=== PATIENT | female | born 1940 | race Caucasian/White ===

== ENCOUNTER 2022-09-19 15:45 | Emergency (ER) | payer OTHER, MEDICARE ==
[~2022-09-19 15:45] MED LIST: Iopamidol 370 76% 100 ML VIAL ONE
[2022-09-19] MEDS ORDERED: Sodium Chloride 0.9% 1,000 ML ONE (16:19)
[2022-09-19] MEDS ORDERED: Lidocaine 1% w/Epinephrine 1:100K 30 ML VIAL ONE (16:19)
[2022-09-19 16:34] LABS: #Basophils 0.1 thou/uL (0.0-0.2); #Lymphocytes 2.7 thou/uL (1.20-3.40); #Monocytes 0.5 thou/uL (0.11-0.59); #Neutrophils 3.6 thou/uL (1.40-6.50); %Basophils 1.4 % (0.0-1.0); %Eosinophils 0.4 % (0.0-10.0); %Lymphocytes 38.8 % (21.0-51.0); %Monocytes 7.3 % (0.0-10.0); Hemoglobin 13.7 g/dL (12.0-16.0); Mean Corpuscular HGB CONC 31.4 g/dL (32.0-36.0); Mean Corpuscular Hemoglobin 27.7 pg (27.0-31.0); Mean Corpuscular Volume 88.2 fl (78.0-98.0); Platelet Count 253 10x3/uL (130-400); RBC Distribution Width 13.3 % (11.5-14.5); Red Blood Cell (RBC) Count 4.94 mill/uL (4.20-5.40)
[2022-09-19 16:48] LABS: ALT (SGPT) 58 U/L (8-55); AST (SGOT) 89 U/L (5-34); Albumin 4.1 g/dL (3.4-4.8); Alkaline Phosphatase 72 U/L (40-110); Anion Gap 17 mmol/L (10-20); BUN (Urea Nitrogen) 17 mg/dL (9.8-20.1); Bilirubin, Total 0.4 mg/dL (0.2-1.2); Calc. Creatinine Clearance 0 mL/min (70-130); Calcium 9.1 mg/dL (7.8-10.44); Carbon Dioxide 24 mmol/L (23-31); Chloride 104 mmol/L (98-107); Estimated GFR 48; Globulin 3.1 g/dL (2.4-3.5); Glucose 104 mg/dL (83-110); Potassium 3.9 mmol/L (3.5-5.1); Protein, Total 7.2 g/dL (5.8-8.1); Sodium 141 mmol/L (136-145)
[2022-09-19] MEDS ORDERED: Acetaminophen 325 MG TAB ONE ×2 (17:16→17:17)
[2022-09-19] MEDS ORDERED: Bacitracin 1 PK ONE (17:20)
[2022-09-19] MEDS ORDERED: CEFAZOLIN 2 GM VIAL ONE (18:21)
[2022-09-19] MEDS ORDERED: Sodium Chloride 0.9% 100 ML ONE (18:21)
[2022-09-19] MEDS ORDERED: Sodium Chloride 0.9% 200 ML ONE (18:22)
[2022-09-19] MEDS ORDERED: CEFAZOLIN 1 GM VIAL ONE (18:22)
== END 2022-09-19 22:23 | disposition short-term general hospital (02) ==
LOC: MADERS 15:45
DX: S02.19XA Other fracture of base of skull, initial encounter for closed fracture (principal); S02.841A Fracture of lateral orbital wall, right side, initial encounter for closed fracture; S02.831A Fracture of medial orbital wall, right side, initial encounter for closed fracture; S02.31XA Fracture of orbital floor, right side, initial encounter for closed fracture; S02.40EA Zygomatic fracture, right side, initial encounter for closed fracture; S01.111A Laceration without foreign body of right eyelid and periocular area, initial encounter; S20.211A Contusion of right front wall of thorax, initial encounter; W01.10XA Fall on same level from slipping, tripping and stumbling with subsequent striking against unspecified object, initial encounter
CPT/HCPCS: 12013; 36416; 70450; 70486; 71260; 72125; 74177; 80053; 84484; 85025; 93005; 94760; 96361; 96365; J0690; J3490; J7050; Q9967